=== PATIENT | male | born 1960 | race Caucasian/White ===

== ENCOUNTER 2020-12-22 11:34 | Emergency (ER) | payer OTHER ==
[~2020-12-22] VITALS: Ht 185.4 cm; Wt 92.5 kg
[2020-12-22] MEDS ORDERED: CLARITIN10 MG PO (11:53)
[2020-12-22 12:31] LABS: ABSOLUTE BASOPHILS 0.1 thou/uL (0.0-0.2); ABSOLUTE EOSINOPHILS 0.3 thou/uL (0.0-0.7); ABSOLUTE LYMPHOCYTES 2.9 thou/uL (0.8-5.3); ABSOLUTE MONOCYTES 0.9 thou/uL (0.0-1.2); ABSOLUTE NEUTROPHILS 4.3 thou/uL (1.6-8.1); BASOPHILS 1.3 %; HEMATOCRIT 41.4 % (42.0-52.0); HEMOGLOBIN 14.3 gm/dL (14.0-18.0); LYMPHOCYTES 34.3 %; MCH 32.4 pg (26.0-34.0); MCHC 34.6 g/dL (28.0-37.0); MCV 93.8 fL (80.0-100.0); MONOCYTES 10.9 %; MPV 8.4 fl. (7.2-11.1); NUCLEATED RBCS 0 /100WBC; PLATELET COUNT* 297 thou/uL (150-400); POLYS 50.5 %; RBC 4.41 mil/uL (4.50-6.00); RDW-CV 13.4 % (10.5-14.5); WBC 8.5 thou/uL (4.0-11.0)
[2020-12-22 12:39] LABS: CALCIUM 8.1 mg/dL (8.5-10.1); CREATININE 1.5 mg/dL (0.6-1.3); POTASSIUM 4.2 mmol/L (3.5-5.1)
[2020-12-22 12:44] LABS: ALBUMIN 3.5 g/dL (3.4-5.0); TOTAL BILIRUBIN 0.4 mg/dL (<0.1-1.0); TOTAL PROTEIN 6.6 g/dL (6.4-8.2)
[2020-12-22 14:14] VITALS: BP 124/72
== END 2020-12-22 14:15 | disposition home or self-care (01) ==
LOC: M.ERS 11:34
PROVIDERS: Family Medicine
DX: M79.602 Pain in left arm (principal); R20.2 Paresthesia of skin; L53.9 Erythematous condition, unspecified; F17.210 Nicotine dependence, cigarettes, uncomplicated